=== PATIENT | male | born 1935 | race Caucasian/White ===

== ENCOUNTER 2018-10-02 09:59 | Inpatient (IN) ==
[2018-10-02 10:32] LABS: BASO# 0.06 X1000 (0.0-0.2); BASO% 0.8 % (0.0-0.8); EOS# 0.22 X1000 (0.0-0.7); EOS% 3.1 % (0.0-10.0); HEMATOCRIT 48.4 % (42.0-52.0); HEMOGLOBIN 16.4 g/dL (14.0-18.0); IMM GRAN# 0.03 X1000 (0.0-0.04); IMM GRAN% 0.4 % (0.0-0.5); LYMPH# 1.36 X1000 (1.2-3.4); LYMPH% 18.9 % (20.5-51.1); MCH 29.6 PG (27-31); MCHC 33.9 g/dL (33-37); MCV 87.4 FL (81-99); MONO# 0.57 X1000 (0.11-0.59); MONO% 7.9 % (1.7-9.3); MPV 10.9 FL (7.4-10.4); NEUT# 4.97 X1000 (1.4-6.5); NEUT% 68.9 % (42.2-75.2); PLT 195 X1000 (130-400); RBC 5.54 XMIL (4.7-6.1); RDW 13.7 % (11.5-14.5); WBC 7.21 X1000 (4.8-10.8)
--- NOTE | 2018-10-02 10:47 | Diag Imaging Result Doc PS360 ---
EXAM: CHEST-2 VIEWS 10/02/2018 HISTORY: cp TECHNIQUE: PA and lateral chest COMMENT: There is cardiomegaly. There are sternotomy wires. The lungs appear to be clear and unchanged since 01/30/2017. IMPRESSION: Stable chest. Electronically signed by Surinder Anton 10/02/2018 10:45 AM
[2018-10-02 11:02] LABS: CK PROFILE 49 U/L (24-204); LIPASE 20 U/L (13-60)
[2018-10-02] MEDS ORDERED: NITROGLYCERIN TOP ONE (11:20)
[2018-10-02 11:35] LABS: ALB/GLOB RATIO 1.8; ALBUMIN 4.4 g/dL (3.5-5.0); CALCIUM 9.6 mg/dL (8.8-10.2); CREATININE 1.6 mg/dL (0.7-1.2); POTASSIUM 4.8 mmol/L (3.5-5.1); TOTAL BILIRUBIN 1.95 mg/dL (0.20-1.00); TOTAL PROTEIN 6.8 g/dL (6.3-8.3)
--- NOTE | 2018-10-02 11:52 | EKG Report ---
Test Performed on : 10/02/2018 10:03:42 AM Test Reason : ED. No order in [place] Blood Pressure : / mmHG Vent. Rate : 077 BPM Atrial Rate : 077 BPM P-R Int : 220 ms QRS Dur : 158 ms QT Int : 438 ms P-R-T Axes : 073 -60 019 degrees QTc Int : 495 ms Sinus rhythm. with 1st degree AV block. with premature atrial complexes. with aberrant conduction. Right bundle branch block Left anterior fascicular block Bifascicular block Moderate voltage criteria for LVH, may be normal variant Abnormal ECG No previous ECGs available Unconfirmed Result
[2018-10-02] MEDS ORDERED: MORPHINE IV ONE (11:58)
[2018-10-02] MEDS ORDERED: NITROGLYCERIN SL PRN (14:06)
[2018-10-02] MEDS ORDERED: TYLENOL PO PRN (14:06)
[2018-10-02] MEDS ORDERED: ZOFRAN IV PRN (14:06)
[2018-10-02] MEDS ORDERED: LOVENOX SUBQ ONE (16:51)
--- NOTE | 2018-10-02 17:55 | CARDIOLOGY CONSULTATION ---
DATE: 10/02/2018 CHIEF COMPLAINT ON PRESENTATION: Chest pain. HISTORY OF PRESENT ILLNESS: Ms. Cooper is an 83-year-old white male with a history of coronary disease, aortic stenosis status post TAVR in 2016 who presented with complaints of chest pain that were pressure in nature and occurred this morning while he was hooking up his trailer to his truck. It lasted for several minutes, eventually resolved, no nausea or vomiting. No diaphoresis. He reports compliance with his medications. He sees Dr. Cabrera in [place] for Cardiology and last saw him less than 2 months ago. He has had no recent cardiac testing that he is aware of. PAST MEDICAL HISTORY: Significant for: 1. Coronary disease with coronary bypass grafting. This was done in 2009. This was a redo procedure. His last heart catheterization was performed in 2015 in [place]. This showed a severe lesion in the proximal LAD. REECE to the LAD was patent. The distal segment had severe diffuse disease. The diagonal branch is large and has mild diffuse disease. Circumflex is large nondominant 30% to 40% percent proximal stenosis. Right coronary is occluded. Vein graft to the OM2 was widely patent. REECE to the LAD is widely patent. 2. History of aortic stenosis status post TAVR in 2016. He originally had an aortic balloon valvuloplasty in preparation for colonic surgery. Subsequently 6 weeks later in 2016, he had a TAVR. 3. Colon cancer status post resection in 2016. 4. Hypertension. 5. Hyperlipidemia. 6. Chronic kidney disease. 7. Ischemic cardiomyopathy. The last evaluation of his ejection fraction that we have on record is from a nuclear scan in 2016 demonstrating an ejection fraction of 24%. On that study, he had a large size severe intensity, mostly fixed defect in the inferior wall suggestive of scar. In addition, he had a dilated left ventricle. SOCIAL HISTORY: He is . His is present with him today. He does not smoke. FAMILY HISTORY: Significant for hypertension. REVIEW OF SYSTEMS: A 10-system review of systems is negative except for those things mentioned in HPI. PHYSICAL EXAMINATION: Vital Signs: He is afebrile. His heart rate is 54. His blood pressure is 151/74. On presentation was 187/108. General: No acute distress. HEENT: Oropharynx is moist. Poor dentition. Eye examination is pink conjunctivae. White sclerae. Neck Examination: Shows no obvious thyromegaly or thyroid tenderness. Cardiovascular: He sounds to be in a regular rate and rhythm. I do not hear any obvious murmurs. He has no S3. He has no lower extremity edema. Chest Examination: Clear bilaterally. He has no increased work of breathing. Abdomen: Soft, nontender, nondistended. He has no obvious organomegaly. Skin: Warm and dry throughout without any rashes. Neurological: He is moving all extremities well. No lateralizing deficits. PERTINENT DATA: His EKG reviewed by me shows sinus mechanism. He has a right bundle branch block. PVC is identified. His lab data demonstrates a white count of 7.2, his hematocrit is 48, his platelet count is 195,000, his sodium is 143, potassium is 4.8, BUN 19, creatinine is 1.6. This gives him a GFR of 42. His liver enzymes are unremarkable. His troponin is negative initially. ASSESSMENT: Mr. Cooper is an 83-year-old male with a history of coronary disease, previous myocardial infarction and coronary bypass grafting and previous transcatheter aortic valve replacement. He presents with chest pain. PLAN: We will continue to trend his cardiac enzymes. We will review his echocardiogram. We will trend his blood pressures overnight, and when able, we will titrate medications. He currently is on aspirin therapy. I will give him a one time dose of Lovenox. cc: Nadeem Olivas MD
[2018-10-02 18:51] LABS: CK-MB 176.3 ng/mL (0.0-5.0)
--- NOTE | 2018-10-02 20:39 | ECHO REPORT ---
ORDER DATE: 10/02/2018 INTERPRETING PHYSICIAN: Singh Magallanes MD. REQUESTING PROVIDER: ARVIND Méndez, Hospitalist. INDICATIONS: Congestive heart failure, coronary artery disease. M-MODE MEASUREMENTS: Left ventricle end diastole: 5.9 cm. Left ventricle end systole: 4.7 cm. Posterior wall: 1.1 cm. Interventricular septum: 1.2 cm. Left atrium: 5.1 cm. Aortic diameter: not measurable here. The study was difficult. Optison was added to maximize visualization of the endocardium. SUMMARY OF 2-DIMENSIONAL IMAGIN. The left ventricular chamber is dilated. Otherwise the ventricular function appears to be significantly impaired. Estimated ejection fraction is about 35%. I believe there is significant impairment of the inferoposterior wall. 2. The mitral valve shows moderate degree of regurgitation. 3. Pulse wave Doppler of mitral inflow shows mild reversal of the E/A ratio at 0.7. 4. The tissue Doppler of septal and lateral mitral annulus is 5.5 cm. 5. There is impaired left ventricular relaxation. 6. The tricuspid valve shows mild regurgitation. 7. Pulmonary pressure estimated at 47 mmHg. The pulmonary valve is unremarkable. 8. Aortic valve shows sclerosis of the cusps without aortic stenosis. 9. The left atrium is mild to moderately enlarged. 10.There is no pericardial effusion, mass or thrombus. In summary, this patient has: 1. Enlargement of left ventricle with moderately impaired systolic function with ejection fraction of 30-35% with wall motion abnormality involving mostly the inferolateral wall. 2. The mitral annulus shows calcification with mild to moderate regurgitation. 3. There is impaired left ventricular relaxation. 4. Pulmonary pressure is estimated at 47 mmHg. Clinical correlation is recommended. cc: Singh Magallanes MD
--- NOTE | 2018-10-02 23:02 | HISTORY AND PHYSICAL ---
PRIMARY CARE PROVIDER: Jose Manuel Fernandez N[employer] LEADER: Dr. Cabrera at [facility]. CHIEF COMPLAINT: Chest pain. HISTORY OF PRESENT ILLNESS: Mr. Cooper is an 83-year-old male who carries a past medical history of coronary artery disease status post CABG x2, TAVR procedure, congestive heart failure, hypertension, chronic kidney disease, and gout, who reported to the ED after he started having chest pain this a.m. He described it as achy and tight as well as aching in his back underneath his right shoulder blade. The chest pain went from the right side across to the left side of his chest. He had some associated shortness of breath and dizziness as well as weakness. 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 That is when it began. He went ahead and went to an acre lot, did about 3 circles of mowing and had to stop secondary to the pain. It was relieved with morphine and nitroglycerin. He now just has soreness in his chest and back area. Initial workup in the ED showed a negative troponin, stable chronic kidney disease, chronically elevated T bilirubin. EKG showed sinus rhythm with a first-degree AV block with PACs at 77 beats per minute. He will be admitted to the hospital. We will continue to trend his cardiac enzymes as well as check an echocardiogram and consult Cardiology. PAST MEDICAL HISTORY: 1. Coronary artery disease. 2. Congestive heart failure. 3. Hypertension. 4. Chronic kidney disease. 5. Gout. 6. Aortic valve stenosis. PAST SURGICAL HISTORY: 1. CABG x2 in [address] Jeremi Brito. He has also had 10 heart stents. 2. TAVR with an aortic valve replacement. Patient was on Coumadin. He is now on Plavix secondary to severe nosebleeds. 3. Knee replacement and hip replacement. FAMILY HISTORY: Reviewed and noncontributory. SOCIAL HISTORY: He lives with his . No alcohol, tobacco, or illicit drug use. ALLERGIES: To statin. HOME MEDICATIONS: Have not been verified. REVIEW OF SYSTEMS: Twelve-point review of systems completely negative except for those mentioned in HPI. VITAL SIGNS: Temperature is 97.9 degrees, heart rate 54, respirations 18, blood pressure 151/74. O2 is 98% on room air. PHYSICAL EXAMINATION: VITAL SIGNS: Temperature is 97.9 degrees, heart rate 54, respirations 18, blood pressure 151/74, O2 is 98% on room air. GENERAL: Mr. Coopre is a pleasant 83-year-old male who is lying on the stretcher in no acute distress. HEENT: Atraumatic, normocephalic. PERRL. NECK: Supple. Trachea midline. CARDIOVASCULAR: S1-S2 appreciated. Did not appreciate any home mechanical valve sounds or murmurs. No JVD. The patient does have 3+ pitting edema in the bilateral lower extremities. GASTROINTESTINAL: Soft, nontender, nondistended. Positive bowel sounds 4 quadrants. EXTREMITIES: No signs of clubbing or cyanosis. NEUROLOGIC: No focal deficits noted. LABORATORY DATA: White count 7, hemoglobin and hematocrit 16 and 48, platelet count is 195,000. Sodium 143, potassium 4.8, BUN 19, creatinine 1.6, blood glucose is 164, T bilirubin was 1.95. Troponin was less than 0.010. DIAGNOSTIC DATA: Chest x-ray is stable. EKG showed sinus rhythm with first- degree AV block with PACs and left anterior fascicular block. ASSESSMENT AND PLAN: 1. 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 His chest pain is now subsided; however, it was subsided after he was given morphine and nitroglycerin; however, now, all that is left is soreness. There is no achy or tight feeling. We will continue to trend his cardiac enzymes for 2 more sets, check an echocardiogram, consult with Cardiology given his history. Continue to monitor him on telemetry and provide him with p.r.n. nitroglycerin and will continue any home medications once they have been verified. 2. Congestive heart failure. 3. Hypertension. 4. Chronic kidney disease. Patient appears to be at his baseline. 5. Bilateral lower extremity edema. This has been chronic and ongoing for several years. 6. Further recommendations to follow physician evaluation, laboratory and diagnostic data. Dictated by ARVIND Rea for Grady Rivera MD cc: MD Jose Manuel Thomas MD Agree with the above. the following is my own face to face assessment. patient with chest pain. history only moderate suspicious but extensive cardiac history with CAD, severe aortic stenosis s/p TAVR, and chronic systolic CHF, last EF in our system 25% but patient believes his EF improved significantly after TAVR and with medical therapy. heart RRR on exam. no murmurs that I can auscultate. MTDD
[2018-10-02 23:30] LABS: CK INDEX 12.2 (0.0-2.5); CK-MB 197.3 ng/mL (0.0-5.0)
[2018-10-03 05:34] LABS: BASO# 0.03 X1000 (0.0-0.2); BASO% 0.4 % (0.0-0.8); EOS# 0.24 X1000 (0.0-0.7); EOS% 3.2 % (0.0-10.0); HEMATOCRIT 43.1 % (42.0-52.0); HEMOGLOBIN 14.6 g/dL (14.0-18.0); IMM GRAN# 0.04 X1000 (0.0-0.04); IMM GRAN% 0.5 % (0.0-0.5); LYMPH# 1.35 X1000 (1.2-3.4); LYMPH% 18.2 % (20.5-51.1); MCHC 33.9 g/dL (33-37); MCV 88.7 FL (81-99); MONO# 0.71 X1000 (0.11-0.59); MONO% 9.6 % (1.7-9.3); MPV 11.1 FL (7.4-10.4); NEUT# 5.06 X1000 (1.4-6.5); NEUT% 68.1 % (42.2-75.2); PLT 147 X1000 (130-400); RBC 4.86 XMIL (4.7-6.1); RDW 13.6 % (11.5-14.5); WBC 7.43 X1000 (4.8-10.8)
[2018-10-03 06:13] LABS: AGAP 10; ALB/GLOB RATIO 1.4; ALBUMIN 3.4 g/dL (3.5-5.0); ALKALINE PHOSPHATASE 60 U/L (32-122); BUN 18 mg/dL (8-22); CALCIUM 8.7 mg/dL (8.8-10.2); CHLORIDE 102 mmol/L (98-107); CHOLESTEROL 152 mg/dL (0-200); COSMO 279; CREATININE 1.3 mg/dL (0.7-1.2); ESTIMATED GFR 53; GLUCOSE 118 mg/dL (70-104); GOT 213 U/L (10-34); GPT 31 U/L (10-44); MAGNESIUM 1.8 mg/dL (1.5-2.7); SODIUM 138 mmol/L (136-145); TCO2 26 mmol/L (25-35); TOTAL BILIRUBIN 1.65 mg/dL (0.20-1.00); TOTAL PROTEIN 5.8 g/dL (6.3-8.3); TRIGLYCERIDES 162 mg/dL (39-160)
[2018-10-03 06:14] LABS: HDL 39 mg/dL (35-55); LDL 81 mg/dL; VLDL 32 mg/dL
[2018-10-03] MEDS: PRILOSEC PO SCH (06:57)
[2018-10-03] MEDS ORDERED: ASPIRIN PO SCH (09:00)
[2018-10-03] MEDS: PLAVIX PO SCH (09:54)
[2018-10-03] MEDS: LOVENOX SUBQ SCH (16:05)
--- NOTE | 2018-10-03 20:00 | PROGRESS NOTE ---
DATE: 10/03/2018 The patient with no further chest pain, but did have increasing troponin overnight. No other acute events overnight. No new complaints. REVIEW OF SYSTEMS: Twelve point review of systems negative except as per interval history. LABS: CBC unremarkable. Chemistry remarkable only for BUN 18, creatinine 1.3 glucose 118, total bilirubin 1.65, AST 213. First troponin negative. Repeat troponin 1.23, second repeat troponin 4.38. VITALS: T-max 98.9 degrees, pulse 66, respirations 18, blood pressure 117/62, O2 saturation 99% on room air. PHYSICAL EXAMINATION: General: No acute distress. Vitals: As above. HEENT: Normocephalic, atraumatic. Moist mucous membranes. No cervical adenopathy. Cardiovascular: Regular rate and rhythm. No murmurs noted. Pulmonary: Clear to auscultation bilaterally. No wheezing, rales, or rhonchi noted. Abdomen: Soft, nontender, nondistended. Bowel sounds positive. Extremities: Peripheral pulses intact. No clubbing or cyanosis. Stable 2 to 3+ edema bilaterally. Neurologic: Cranial nerves grossly intact. No focal deficits identified. Psychiatric: Normal mood and affect. Awake, alert, oriented x3. Skin: No new rashes or lesions identified. ASSESSMENT AND PLAN: 1. NSTEMI. The patient presenting with chest pain. Initial troponin was negative but subsequent troponins have trended up to 1.23 and then to 4.38. Further repeat pending. Cardiology has been made aware and further recommendations are pending. Continue aspirin, Plavix, and beta monika. 2. Likely acute kidney injury. Patient admitted with creatinine 1.6. Improved today to 1.3. Could be lab variation, but suspect improving acute kidney injury. 3. Coronary artery disease. Treatment as above. 4. Hypertension. Good control, currently on home Coreg and nitroglycerin. Holding home Lasix and lisinopril given elevated creatinine. 5. Hyperlipidemia. Continue Zetia on discharge. 6. Benign prostatic hypertrophy. We will restart patient's home Flomax. 7. Chronic systolic congestive heart failure. The patient with previous EF as low as 25, but he reports he believes this improved after repair of his aortic valve. Repeat echo pending to assess. 8. History of severe aortic stenosis status post TAVR repair. 9. Elevated bilirubin of uncertain significance but trending down. No abdominal pain or other intra-abdominal pathology. Monitor for now. MTDD
[2018-10-03] MEDS: COREG PO SCH (20:58)
--- NOTE | 2018-10-03 20:59 | EKG Report ---
Test Performed on : 10/03/2018 06:11:33 AM Test Reason : cp fu Blood Pressure : / mmHG Vent. Rate : 053 BPM Atrial Rate : 053 BPM P-R Int : 272 ms QRS Dur : 164 ms QT Int : 540 ms P-R-T Axes : 045 -56 217 degrees QTc Int : 506 ms Sinus bradycardia. with 1st degree AV block. with occasional premature ventricular complexes. Right bundle branch block Left anterior fascicular block Bifascicular block Minimal voltage criteria for LVH, may be normal variant T wave abnormality, consider lateral ischemia Nonspecific T wave abnormality inferior leads Abnormal ECG When compared with ECG of 02-OCT-2018 10:03, (Unconfirmed) premature ventricular complexes. are now present aberrant conduction. is no longer present Nonspecific T wave abnormality, worse in Inferior leads T wave inversion now evident in Lateral leads Confirmed by Cameron Hebert MD ([id number]) on 10/06/2018 9:07:47 PM
--- NOTE | 2018-10-03 22:31 | CARDIOLOGY PROGRESS NOTE ---
DATE: 10/03/2018 SUBJECTIVE: He has had no episodes of chest pain overnight. OBJECTIVE: The patient is afebrile. His heart rate is 66, blood pressure 117/62. Generally he is in no acute distress. Cardiovascular: He sounds to be in a regular rate and rhythm. He has no obvious murmurs. He has no S3. He has no lower extremity edema. Chest exam is clear bilaterally. No increased work of breathing. Abdomen is soft, nontender. LABORATORY DATA: White count 7.4, hematocrit 43, platelet count 147,000. His sodium is 138, potassium 4, BUN 18, creatinine 1.3. His troponin has trended from less than 0.010 up to a peak of 4.38. His LDL was 81. ASSESSMENT: Mr. Cooper is an 83-year-old gentleman who presents with chest discomfort concerning for angina. He has ruled in for a [id number] myocardial infarction. PLAN: We will proceed with transfer over to [facility] for heart catheterization and possible PCI. The patient has been placed on Lovenox at a 1 mg/kg b.i.d. dosing. Presently he is on Plavix, aspirin and p.r.n. nitroglycerin. He appears to have been on a 12.5 mg Coreg dose at home. His blood pressures seem to be on the low side here. We will try to reinitiate with a 3.125 mg b.i.d. dose. We will discuss the case with [facility] today to attempt transfer over in the near future. cc: Nadeem Olivas MD
[2018-10-04 05:40] LABS: BASO# 0.03 X1000 (0.0-0.2); BASO% 0.4 % (0.0-0.8); EOS% 4.4 % (0.0-10.0); HEMATOCRIT 43.5 % (42.0-52.0); HEMOGLOBIN 14.7 g/dL (14.0-18.0); IMM GRAN# 0.04 X1000 (0.0-0.04); IMM GRAN% 0.6 % (0.0-0.5); LYMPH# 1.51 X1000 (1.2-3.4); LYMPH% 22.2 % (20.5-51.1); MCH 29.9 PG (27-31); MCHC 33.8 g/dL (33-37); MCV 88.4 FL (81-99); MONO# 0.66 X1000 (0.11-0.59); MONO% 9.7 % (1.7-9.3); MPV 11.1 FL (7.4-10.4); NEUT# 4.26 X1000 (1.4-6.5); NEUT% 62.7 % (42.2-75.2); PLT 167 X1000 (130-400); RBC 4.92 XMIL (4.7-6.1); RDW 13.6 % (11.5-14.5)
[2018-10-04 05:52] LABS: CALCIUM 8.7 mg/dL (8.8-10.2); CREATININE 1.2 mg/dL (0.7-1.2); POTASSIUM 4.1 mmol/L (3.5-5.1)
[2018-10-04] MEDS: PRILOSEC PO SCH (06:16)
[2018-10-04] MEDS: LOVENOX SUBQ SCH (06:16)
[2018-10-04] MEDS ORDERED: ASPIRIN EC PO SCH (09:00)
[2018-10-04] MEDS: COREG PO SCH (09:40)
[2018-10-04] MEDS: PLAVIX PO SCH (09:40)
[2018-10-04] MEDS ORDERED: PRINIVIL PO SCH (10:15)
--- NOTE | 2018-10-04 10:55 | CARDIOLOGY PROGRESS NOTE ---
DATE: 10/04/2018 SUBJECTIVE: Mr. Cooper has not had any pain complaints since presentation to the hospital. PHYSICAL EXAMINATION: He is afebrile, his heart rate is 54, his blood pressure is 149/60. General: He is in no acute distress. Cardiovascular: He sounds to be in a regular rate and rhythm. He does not have any obvious murmurs. He has no S3. He has no lower extremity edema. Chest: Examination sounds clear bilaterally. He has no increased work of breathing. His abdomen is soft, nontender. PERTINENT DATA: His echocardiogram yesterday demonstrated an EF of 30 to 35% with wall motion abnormality involving the inferolateral wall. His laboratory data in the interim demonstrates a sodium of 140, potassium is 4.1, BUN 18, creatinine is 1.2. His troponin peaked at 4.38. His LDL was 81. He has an intolerance to statins. His white count is 6.8, hematocrit is 43, his platelet count is 167,000. ASSESSMENT: Mr. Cooper is an 83-year-old gentleman who presented with a non-ST elevation myocardial infarction. PLAN: We have discussed the case with the cardiology service at [place]. They have agreed to accept him over for cardiac catheterization. His previous catheterization in 2009 demonstrated an occluded right coronary. Circumflex was large and nondominant with 30-40% diffuse stenosis. The LAD had a high-grade lesion in the proximal LAD with a patent REECE to the LAD, with distal severe diffuse disease in the distal LAD. There was a diagonal branch with large and mild diffuse disease. His blood pressure has been somewhat elevated recently. I have added in some RUFINA inhibitor considering his recent non ST-elevation CO and reduced ejection fraction. He is on a beta-monika, aspirin, Plavix, and treatment dose Lovenox. cc: Nadeem Olivas MD
[2018-10-04 11:56] VITALS: BP 146/53
--- NOTE | 2018-10-06 09:27 | PROVIDER DOCUMENTATION ---
This chart was entered by Liz Kuhn Scribe, acting as scribe for Gordon Norris MD. HPI-Chest Pain - General Chief Complaint: Chest Pain Stated Complaint: CHEST PAIN Time Seen by Provider: 10/02/18 10:05 Source: patient Allergies/Adverse Reactions: Patient Allergies Allergy/AdvReac Type Severity Reaction Status Date / Time Ncxrkpj-Tvd-Gcm Reductase Allergy Intermediate ITCHING Verified 06/10/17 12:55 Inhibitor Home Medications: Home Medication List Medication Instructions Recorded Confirmed Last Taken Type Allopurinol 100 mg PO BID 06/03/15 10/02/18 10/02/18 08:30 History Aspirin 81 mg PO DAILY 06/03/15 10/02/18 10/02/18 08:30 History Ezetimibe [Zetia] 10 mg PO DAILY 06/03/15 10/02/18 06/15/17 History Furosemide [Lasix] 20 mg PO DAILY 06/03/15 10/02/18 06/15/17 History Tamsulosin [Flomax] 0.4 mg PO DAILY 06/03/15 10/02/18 06/15/17 History Clopidogrel Bisulfate [Plavix] 75 mg PO DAILY 01/30/17 10/02/18 1 Week Ago History ~06/09/17 Lisinopril 5 mg PO BID 01/30/17 10/02/18 10/02/18 08:30 History Carvedilol [Coreg] 1 tab PO BID 06/10/17 10/02/18 10/02/18 08:30 History Ergocalciferol (Vitamin D2) 50,000 unit PO Q7D 06/10/17 10/02/18 06/10/17 History [Vitamin D] - History of Present Illness-CP Nature of Presenting Problem: 83yom presents to ED cc chest pain that is achy but doesn't radiate anywhere, for 1 hr. Pt reports he went out to mow grass on riding lawnmower and started having chest pain. Pt denies SOB. Pt is nontoxic in appearance and A&Ox3. Pt has hx of CO with 10 stents placed, aortic valve replacement, CAD, CHF, HTN and colon cancer. Location: reports: substernal Chest Pain Radiation: reports: no radiation Quality of Pain: reports: aching Severity in ED: mild Onset/Duration: 1-3 hours ago Timing: intermittent Context/Activities at Onset: reports: moderate activity (mowing grass on riding lawnmower) Modifying Factors: improves with: nothing Associated Symptoms: reports: denies symptoms Prior Chest Pain/Cardiac Workup: reports: heart attack Similar Symptoms Previously?: Yes Recently Seen Here or By Another Healthcare Provider: No Review of Systems - Adult - REVIEW OF SYSTEMS - ADULT Constitutional: reports: see HPI, fatique. denies: chills, fever Eyes: reports: no symptoms reported Ears, Nose, Mouth & Throat: reports: no symptoms reported Cardiovascular: reports: see HPI, chest pain. denies: irregular heart rate, palpitations, syncope Respiratory: reports: no symptoms reported Gastrointestinal: reports: no symptoms reported Genitourinary: reports: no symptoms reported Musculoskeletal: reports: no symptoms reported Integumentary: reports: no symptoms reported Neurological: reports: no symptoms reported Psychiatric: reports: no symptoms reported Endocrine: reports: no symptoms reported Hematologic/Lymphatic: reports: no symptoms reported Allergic/Immunologic: reports: no symptoms reported All Other Systems: Reviewed and Negative Past History - Adult - PAST MEDICAL HISTORY-ADULT Review of Records: reports: Nursing Assessment Review, Medications Reviewed, Social history reviewed & non-contributory. Major Childhood Illnesses: reports: denies history Cardiovascular: reports: CAD, CHF, HTN Respiratory: reports: denies history Gastrointestinal: reports: denies history Obstetrical/Gynecological: reports: denies history Genitourinary: reports: kidney disease Musculoskeletal: reports: arthritis (gout) Neurological: reports: denies history Endocrine/Immune: reports: denies history Other Conditions: reports: denies history - PRIOR SURGERIES/PROCEDURES Surgical/Procedure History: reports: CABG (last few yrs ago), cardiac stent (x10), joint replacement (knee, hip) - IMMUNIZATION STATUS Childhood Immunizations: See Nurse Assessment Flu Vaccine: See Nurse Assessment - FAMILY HISTORY Family History: reviewed, not pertinent Physical Exam-General - PHYSICAL EXAM-ADULT Initial Vital Signs Reviewed: Yes - CONSTITUTIONAL General Appearance: appears well, alert, mild distress, anxious. negative: combative - EYES Eyes: PERRL/EOMI, pink conjunctivae. negative: meningismus, pale conjunctivae, photophobia - HEAD, EARS, NOSE, MOUTH & THROAT HENMT: normocephalic/atraumatic, moist mucous membranes. negative: angioedema, hearing deficit - RESPIRATORY Respiratory: chest non-tender, lungs clear, normal breath sounds, no pleuratic chest pain, no respiratory distress, no accessory muscle use. negative: crackles, rales, rhonchi, stridor, wheezing - CARDIOVASCULAR Cardiovascular: normal peripheral pulses, regular rate, rhythm, no edema, no gallop, no JVD, no murmur. negative: bradycardia, tachycardia - SKIN Integumentary: normal color, normal turgor, warm/dry. negative: blanching, cyanosis, diaphoresis, jaundice - NEUROLOGIC Neurologic: artificial foliage arranger II-XII nml as tested, grossly normal, no motor/sensory deficits. negative: facial droop, focal weakness - PSYCHIATRIC Psych/Mental Status: normal mood/affect, normal thought content, normal thought process, oriented x 3, anxious. negative: disoriented x 3, disheveled, depressed affect Progress - PLAN OF CARE/RESULTS Result Diagrams: 10/04/18 04:41 10/04/18 04:41 - EKG 1 Time of EKG reading by physician:: 10:25 EKG Read and Signed by:: Gordon Norris EKG Interpretation (*Must complete 3 of following elements*): Abnormal (left anterior fascicular block bifascicular block) Rate: 77 Rhythm: sinus w/1st degree AV block QRS: RBB, LVH (moderate voltage criteria, may be normal variant), other (PAC with aberrant conduction) ST Wave: normal - XRAY 1 XRAY: Bilateral XRAY Study: Chest Impression: See EMR Report ( IMPRESSION: Stable chest. Electronically signed by Surinder Anton 10/02/2018 10:45 AM 10/02/18 1045 Interpreting Physician: Surinder Anton MD Dictated Date/Time: 10/02/18 1044 cc: Gordon Norris MD; Jose Manuel Fernandez) - CONSULTS/PCP/HOSPITALIST Notification #1 *Consult/PCP/Hospitalist*: Zo Time Discussed: 11:58 Consult Disposition: Will see in ED Departure - Departure Date of Disposition Decision: 10/02/18 Time of Disposition Decision: 14:00 DIAGNOSIS: Chest pain Qualifiers: Chest pain type: unspecified Qualified Code(s): R07.9 - Chest pain, unspecified Disposition: ADMITTED INPATIENT 09 Certified Medical Emergency: Emergent Condition: Stable - Critical Care Note This patient required my direct & personal management of CC.: No Attestation - Physician/ ANNETTA Attestation Patient care was provided by Advanced Practice Provider:: No The physician spent face to face time with patient:: Yes Advanced Practice Provider documentation review:: Supervising physician onsite and consulted in the evaluation and care of this patient. The physician did have a face to face encounter with the patient. This chart was documented by the indicated scribe, (Liz Kuhn, Mita) and accurately reflects the services I performed and decisions made by me, Gordon Norris MD, as attested by the provider's signature.
--- NOTE | 2018-10-06 11:00 | DISCHARGE SUMMARY ---
ADMISSION DATE: 10/02/2018 DISCHARGE DATE: 10/04/2018 ADDENDUM TO DISCHARGE SUMMARY: PROCEDURES AND FINDINGS: Chest x-ray done on 10/02/2018 shows a stable chest. No cardiomegaly. Echocardiogram done on 10/02/2018 shows enlargement of the left ventricle with moderately impaired systolic function with ejection fraction of 30 to 35 percent with wall motion abnormality involving mostly the inferior lateral wall. The mitral annulus shows calcification with mild-to- moderate regurgitation. There is a impaired left ventricular relaxation. Pulmonary pressure is estimated at 47 mmHg. EKG on 10/03/2018 shows sinus bradycardia with first-degree AV block with occasional premature ventricular complexes. 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 Atrial rate is 53 beats per minute. Laboratory finding showed an initial prior troponin of 0.01, then increasing to 1.230, then 4.380 and then 3.2060. Initial creatinine is 1.6. Upon discharge creatinine is 1.2. Creatine kinase initially was 49 going to 1354 and then 1621 with a creatine kinase index of 13, and then this subsequently 12.2. CONSULTATION: Brendon Saenz. HOSPITAL COURSE: Mr. Cooper is an 83-year-old male who presented to the ER with chest pain. Patient has a past medical history of coronary artery disease status post CABG x2, a TAVR procedure, congestive heart failure, hypertension, chronic kidney disease, and gout. The patient stated he had been having aching and tightness along the chest wall in his back and his right shoulder blade. The chest pain went from the right side across to the left side of his chest. He has had some associated shortness of breath and dizziness as well as weakness. Initially started having this pain while he was loading a lawnmower into the back of his truck. He stated that the chest pain was a soreness is to his chest at the present time in the emergency room. The patient was admitted to the CIC unit. Serial CK and troponin's were followed up. Echocardiogram was performed and cardiology was consulted. Patient started having chest pain overnight on 10/03/2018. Troponins became elevated. The patient is being transferred to [facility] for heart catheterization and possible PCI. The patient was started on Lovenox 1 mg/kg b.i.d. He was also started on Plavix and aspirin, and nitroglycerin p.r.n. for pain. The patient had a heart catheterization in 2009 that demonstrated occluded right coronary, the circumflex was large and nondominant with 30% diffuse stenosis. The LAD had a high-grade lesion in the proximal LAD with a patent REECE to the LAD with distal severe diffuse disease in the distal LAD. The patient was started on an RUFINA inhibitor. He is on beta monika, aspirin and Plavix. DISCHARGE LAB DATA: White blood cell count 6.80, hemoglobin 14.7, hematocrit 43.5, platelet counts 167,000. Chemistry, sodium 140, potassium 4.1, BUN is 18, creatinine is 1.2, glucose is 114, calcium is 8.7, total bilirubin is 1.65, AST is 213, ALT is 31, creatine kinase 1621, creatine kinase index 12.2, CK-MB 197.30, troponin 3.260. DISCHARGE MEDICATIONS: Allopurinol 100 mg p.o. b.i.d., aspirin 81 mg p.o. daily, nitroglycerin 0.4 mg sublingual q.5 minutes p.r.n. pain, Prilosec 20 mg p.o. daily, Plavix 75 mg p.o. daily. Lovenox 100 mg subcutaneous q.12 hours, Coreg 3.125 mg p.o. b.i.d., lisinopril 10 mg p.o. daily. DISCHARGE DIET: Per [facility]. DISCHARGE ACTIVITY: Patient is being discharged to a [facility]. Resume activity per [facility]. DISPOSITION: Patient is discharged to [facility] PCI. Primary care providers Dr. Grady Fernandez. Dictated by ARVIND Robledo for Grady Rivera MD
== END 2018-10-04 13:45 | disposition short-term general hospital (02) | DRG 281 ==
LOC: ED 09:59 → 4N 10:00 → 3S 10-03 16:18
PROVIDERS: ATTEND Internal Medicine
CPT/HCPCS: 71020; 71046; 80048; 80053; 80061; 82550; 82553; 83690; 83735; 84484; 85025; 93005; 93010; 93306; 94761; A9270; C8929; J1650; J2270; Q9957

== ENCOUNTER 2019-06-26 13:00 | Inpatient (IN) ==
[2019-06-26] MEDS ORDERED: ASPIRIN PO ONE ×2 (13:58→15:39)
--- NOTE | 2019-06-26 14:06 | PROVIDER DOCUMENTATION ---
HPI-General Adult - General Chief Complaint: Dizziness Stated Complaint: WEAKNESS/DIZZY Time Seen by Provider: 06/26/19 13:51 Source: patient, EMS Allergies/Adverse Reactions: Patient Allergies Allergy/AdvReac Type Severity Reaction Status Date / Time Kikcglt-Ptt-Mbs Reductase Allergy Intermediate ITCHING Verified 06/10/17 12:55 Inhibitor Home Medications: Home Medication List Medication Instructions Recorded Confirmed Last Taken Type Allopurinol 100 mg PO BID 06/03/15 02/17/19 10/02/18 08:30 History Aspirin 81 mg PO DAILY 06/03/15 02/17/19 10/02/18 08:30 History Ezetimibe [Zetia] 10 mg PO DAILY 06/03/15 02/17/19 06/15/17 History Furosemide [Lasix] 20 mg PO DAILY 06/03/15 02/17/19 06/15/17 History Tamsulosin [Flomax] 0.4 mg PO DAILY 06/03/15 02/17/19 06/15/17 History Clopidogrel Bisulfate [Plavix] 75 mg PO DAILY 01/30/17 02/17/19 1 Week Ago History ~06/09/17 Lisinopril 10 mg PO BID 01/30/17 02/17/19 10/02/18 08:30 History Carvedilol [Coreg] 25 tab PO BID 06/10/17 02/17/19 10/02/18 08:30 History Cholecalciferol (Vitamin D3) 5,000 unit PO DAILY 02/17/19 02/17/19 Unknown History [Vitamin D3] Diphenoxylate/Atropine [Lomotil] 2.5 mg PO Q4H PRN 02/17/19 02/17/19 Unknown History Hydrocodone/Acetaminophen 1 ea PO Q6H PRN PRN #20 tab 02/17/19 Unknown Rx [Hydrocodone-Acetamin 5-325 mg] - History of Present Illness -Gen Adult Nature of Presenting Problems: 84 YOM with extensive cardiac hx presents with c/o dizziness, generalized weakness, multiple falls recently most recent being this AM. He reports no Hx of a-fib however on EMS monitor he is showing a rate controlled afib at 54. He denies CP, SOB, Fever, cough. He has swelling to BLE worse on the R than L, pt reports this is chronic. Location of Pain/Injury: reports: none Quality of Pain: reports: none Severity: reports: moderate Onset/Duration: reports: 6 days ago (intermittent) Timing: reports: gone now, intermittent Context/Activities at Onset: reports: eating Modifying Factors: improves with: movement Associated Symptoms: reports: dizziness, weakness. denies: chest pain, cough, diaphoresis, fever/chills, headaches, loss of appetite, sinus congestion/drainage, nausea Similar Symptoms Previously?: Yes Recently seen or treated by another doctor?: No Review of Systems - Adult - REVIEW OF SYSTEMS - ADULT Constitutional: reports: no symptoms reported. denies: chills, fever Eyes: reports: no symptoms reported. denies: decreased vision, blurred vision, double vision, eye pain Ears, Nose, Mouth & Throat: reports: no symptoms reported. denies: tinnitus, mouth/dental pain Cardiovascular: reports: no symptoms reported. denies: chest pain, palpitations Respiratory: reports: no symptoms reported. denies: cough, shortness of breath, wheezing Gastrointestinal: reports: no symptoms reported. denies: abdominal pain, diarrhea, nausea, poor appetite, vomiting Genitourinary: reports: no symptoms reported. denies: dysuria, flank pain, frequent UTI's, hematuria Musculoskeletal: reports: see HPI, muscle weakness (generalized) Integumentary: reports: no symptoms reported. denies: itching, rash, skin sores/ulcer Neurological: reports: dizziness/vertigo, loss of balance. denies: headache/migraines, numbness, paresthesia, seizure, slurred speech, syncope Psychiatric: reports: no symptoms reported. denies: anxiety, depression, panic attacks, suicidal thoughts Endocrine: reports: no symptoms reported. denies: see HPI, change in skin pigment, excessive sweating, goiter, cold intolerance, heat intolerance, increased hunger, increased thirst, polyuria, other Hematologic/Lymphatic: reports: no symptoms reported. denies: see HPI, blood clots, easy bruising, low blood count, lymphedema, prolonged bleeding, swollen lymph nodes, transfusions, other Allergic/Immunologic: reports: no symptoms reported. denies: see HPI, allergic reactions, allergic rhinitis, asthma, eczema, food allergy, frequent infections, hay fever, hives, positive PPD, urticaria, other Past History - Adult - PAST MEDICAL HISTORY-ADULT Review of Records: reports: Nursing Assessment Review, Medications Reviewed, Social history reviewed & non-contributory. Major Childhood Illnesses: reports: denies history Cardiovascular: reports: CAD, CHF, HTN Respiratory: reports: denies history Gastrointestinal: reports: denies history Obstetrical/Gynecological: reports: denies history Genitourinary: reports: kidney disease Musculoskeletal: reports: arthritis (gout) Neurological: reports: denies history Endocrine/Immune: reports: denies history Other Conditions: reports: denies history - PRIOR SURGERIES/PROCEDURES Surgical/Procedure History: reports: CABG, cardiac stent, joint replacement - IMMUNIZATION STATUS Childhood Immunizations: See Nurse Assessment Flu Vaccine: See Nurse Assessment - FAMILY HISTORY Family History: reviewed, not pertinent Physical Exam-General - PHYSICAL EXAM-ADULT Initial Vital Signs Reviewed: Yes - CONSTITUTIONAL General Appearance: alert, no apparent distress - EYES Eyes: PERRL/EOMI, pink conjunctivae - HEAD, EARS, NOSE, MOUTH & THROAT HENMT: normocephalic/atraumatic, moist mucous membranes, normal ENT inspection - NECK Neck: non-tender, full range of motion, supple - RESPIRATORY Respiratory: chest non-tender, lungs clear, normal breath sounds, no pleuratic chest pain, no respiratory distress, no accessory muscle use - CARDIOVASCULAR Cardiovascular: normal peripheral pulses, irregularly irregular - GASTROINTESTINAL (ABDOMEN) Abdominal Exam: normal bowel sounds, non tender, soft - LYMPHATIC Lymphatic: no adenopathy - MUSCULOSKELETAL Back Exam: normal inspection, no CVA tenderness, no vertebral tenderness Extremity: pedal edema (BLE, R> L), swelling (BLE, R > L). negative: normal gait (on EMS stretcher at time of exam), tenderness Peripheral Pulses: radial (R): 2+, radial (L): 2+ - SKIN Integumentary: normal color, normal turgor, warm/dry - NEUROLOGIC Neurologic: grossly normal. negative: aphasia, facial droop, focal weakness - PSYCHIATRIC Psych/Mental Status: normal mood/affect, oriented x 3 Progress - PLAN OF CARE/RESULTS Progress/Plan/Lab Results: Vital Signs - 8 hr 06/26/19 13:12 Temperature 98.3 F Pulse Rate 61 Respiratory Rate 16 Blood Pressure 137/69 O2 Sat by Pulse Oximetry 97 Laboratory Results - last 24 hr 06/26/19 13:19 POC Glucose 140 H Orders Category Date Time Status Fingerstick Blood Sugar [FSBS/Accucheck Result] NOW Care 06/26/19 13:20 Active Nursing- Obtain EKG ONCE Care 06/26/19 13:20 Active Saline Loc NOW Care 06/26/19 13:[address] HEAD W/O CONTRAST [CT] Stat Exams 06/26/19 13:59 Ordered CBC WITH ELECTRONIC DIFF [HEME] Stat Lab 06/26/19 13:58 Uncollected CK PROFILE [SP CHEM] Stat Lab 06/26/19 13:58 Uncollected COMPREHENSIVE METABOLIC PANEL [CHEM] Stat Lab 06/26/19 13:58 Uncollected TROPONIN T HIGH SENSITIVITY Stat Lab 06/26/19 13:58 Uncollected UA NIMS W/REFLEX CULT [URINALYSIS] Stat Lab 06/26/19 13:58 Uncollected Aspirin Med 06/26/19 13:58 Discontinued 325 mg PO NOW ONE EKG [EKG] Stat Ther 06/26/19 13:20 Ordered 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 Moderate voltage for LVH) AR Interval: normal ST Wave: non-specific ST changes Prior EKG Comparison: changes noted (A-fib is of new onset) - XRAY 1 XRAY Study: Chest Impression: See EMR Report (CHEST-2 VIEWS - 06/26/2019 INDICATION: a-fib COMPARISON: 10/02/2018 FINDINGS: Stable surgical changes to the heart with aortic valve replacement. Stable moderate cardiomegaly. Pulmonary vascularity is grossly normal. No infiltrates or edema. No pneumothorax or pleural effusion. IMPRESSION: Cardiomegaly. Electronically signed by Jonathan Stephenson 06/26/2019 3:56 PM 06/26/19 1556 Interpreting Physician: Jonathan Stephenson MD Dictated Date/Time: 06/26/19 1551 cc: Ellie Fernandez; Jose Manuel Fernandez) - CT/MRI 1 CT Study: Head Impression: See EMR Report (CT HEAD W/O CONTRAST - 06/26/2019 INDICATION: dizziness, falls COMPARISON: 01/30/2017 FINDINGS: Stable advanced cerebral atrophy. 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 No intracranial mass or hemorrhage. The skull is intact. The sinuses are clear. IMPRESSION: No acute process. This exam was performed using automated exposure control, adjustment of mA or kV according to patient size, and/or use of iterative reconstruction technique Electronically signed by Jonathan Stephenson 06/26/2019 3:01 PM 06/26/19 1501 Interpreting Physician: Jonathan Stephenson MD Dictated Date/Time: 06/26/19 1451 cc: Ellie Fernandez; Jose Manuel Fernandez) - CONSULTS/PCP/HOSPITALIST Notification #1 *Consult/PCP/Hospitalist*: Rhiannon SAMUELS--> > Kylee Time Discussed: 16:05 Consult Disposition: Admit Departure - Departure Date of Disposition Decision: 06/26/19 Time of Disposition Decision: 16:05 DIAGNOSIS: CKD (chronic kidney disease), New onset a-fib, Generalized weakness, Frequent falls, Dizziness Disposition: ADMITTED INPATIENT 09 Certified Medical Emergency: Emergent Condition: Stable Referrals and Follow-Ups: Jose Manuel Fernandez [Primary Care Provider] - - Critical Care Note This patient required my direct & personal management of CC.: No Attestation - Physician/ ANNETTA Attestation Patient care was provided by Advanced Practice Provider:: Yes Advanced Practice Provider:: Ellie Fernandez Advanced Practice Provider documentation review:: The Mid-level provider documentation, treatment plan and medical decision making was reviewed by the physician who agrees with all treatment and medical decision making by the P. The physician spent face to face time with patient:: No Advanced Practice Provider documentation review:: Supervising physician onsite and consulted in the evaluation and care of this patient. The physician did not have a face to face encounter with the patient.
--- NOTE | 2019-06-26 15:03 | Diag Imaging Result Doc PS360 ---
CT HEAD W/O CONTRAST - 06/26/2019 INDICATION: dizziness, falls COMPARISON: 01/30/2017 FINDINGS: Stable advanced cerebral atrophy. 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 No intracranial mass or hemorrhage. The skull is intact. The sinuses are clear. IMPRESSION: No acute process. This exam was performed using automated exposure control, adjustment of mA or kV according to patient size, and/or use of iterative reconstruction technique Electronically signed by Jonathan Stephenson 06/26/2019 3:01 PM
[2019-06-26 15:18] LABS: URINE SOURCE CLEAN CATCH
[2019-06-26 15:21] LABS: BASO# 0.08 X1000 (0.0-0.2); BASO% 0.7 % (0.0-0.8); EOS% 0.9 % (0.0-10.0); HEMATOCRIT 48.7 % (42.0-52.0); HEMOGLOBIN 16.1 g/dL (14.0-18.0); IMM GRAN# 0.02 X1000 (0.0-0.04); IMM GRAN% 0.2 % (0.0-0.5); LYMPH# 1.48 X1000 (1.2-3.4); LYMPH% 13.7 % (20.5-51.1); MCH 29.5 PG (27-31); MCHC 33.1 g/dL (33-37); MCV 89.2 FL (81-99); MONO# 0.72 X1000 (0.11-0.59); MONO% 6.6 % (1.7-9.3); MPV 11.5 FL (7.4-10.4); NEUT# 8.43 X1000 (1.4-6.5); NEUT% 77.9 % (42.2-75.2); PLT 162 X1000 (130-400); RBC 5.46 XMIL (4.7-6.1); RDW 13.7 % (11.5-14.5); WBC 10.83 X1000 (4.8-10.8)
[2019-06-26 15:25] LABS: BILIRUBIN URINE NEGATIVE (NEGATIVE); BLOOD URINE NEGATIVE (NEGATIVE); COLOR YELLOW; GLUCOSE URINE NEGATIVE (NEGATIVE); KETONE URINE NEGATIVE (NEGATIVE); LEUKOCYTES URINE NEGATIVE (NEGATIVE); NITRITE URINE NEGATIVE (NEGATIVE); PROTEIN URINE NEGATIVE (NEGATIVE); SP GRAVITY URINE 1.014; TURBIDITY URINE CLEAR (CLEAR); UR EPITHELIAL CELLS <10 /HPF (<10); URINE BACTERIA 1+ /HPF; URINE RBC <10 /HPF (<10); URINE WBC <10 /HPF (<10); UROBILINOGEN URINE NORMAL (NORMAL)
[2019-06-26 15:37] LABS: INR 1.04; PROTIME 13.7 Seconds (11.0-16.0)
[2019-06-26 15:38] LABS: PTT 26.6 Seconds (22.3-41.8)
[2019-06-26 15:45] LABS: ALB/GLOB RATIO 1.5; CALCIUM 9.5 mg/dL (8.8-10.2); CREATININE 1.5 mg/dL (0.7-1.2); POTASSIUM 4.8 mmol/L (3.5-5.1); TOTAL BILIRUBIN 1.9 mg/dL (0.20-1.00); TOTAL PROTEIN 6.6 g/dL (6.3-8.3)
--- NOTE | 2019-06-26 15:58 | Diag Imaging Result Doc PS360 ---
CHEST-2 VIEWS - 06/26/2019 INDICATION: a-fib COMPARISON: 10/02/2018 FINDINGS: Stable surgical changes to the heart with aortic valve replacement. Stable moderate cardiomegaly. Pulmonary vascularity is grossly normal. No infiltrates or edema. No pneumothorax or pleural effusion. IMPRESSION: Cardiomegaly. Electronically signed by Jonathan Stephenson 06/26/2019 3:56 PM
--- NOTE | 2019-06-26 17:25 | EKG Report ---
Test Performed on : 06/26/2019 1:16:46 PM Test Reason : weakness Blood Pressure : / mmHG Vent. Rate : 068 BPM Atrial Rate : 079 BPM P-R Int : 000 ms QRS Dur : 152 ms QT Int : 486 ms P-R-T Axes : 000 -52 119 degrees QTc Int : 516 ms Atrial fibrillation. Right bundle branch block Left anterior fascicular block Bifascicular block Moderate voltage criteria for LVH, may be normal variant Cannot rule out Septal infarct , age undetermined Abnormal ECG When compared with ECG of 03-OCT-2018 06:11, Atrial fibrillation. has replaced Sinus rhythm. Nonspecific T wave abnormality no longer evident in Inferior leads T wave inversion no longer evident in Anterior leads Unconfirmed Result
--- NOTE | 2019-06-26 17:58 | HISTORY AND PHYSICAL ---
PRIMARY CARE PROVIDER: Romeo Sherwood. WHEEL AND AXLE INSPECTOR: Dr. Cabrera at [facility]. CHIEF COMPLAINT: Dizzy spells and falls. HISTORY OF PRESENT ILLNESS: Mr. Cooper is an 84-year-old male with a past medical history of non STEMI back in September, ischemic cardiomyopathy, aortic stenosis post TAVR, coronary artery disease status post CABG in 2009, hypertension, hyperlipidemia, acute kidney injury, BPH, congestive heart failure, colon cancer status post resection in 2016, chronic bilateral lower extremity edema, currently has a left swollen testicle that he was supposed to have a procedure done with Dr. Ortiz, but got cancel. He reports over the past week he has been having dizzy spells and falls. It will only last 1 to 2 seconds and then it is over and it usually happens every morning this week. He also reported a 1 year history with issues with his eyesight with blurry and double vision. He has gone to see his eye doctor about this, reported they could not find any issues. Workup in the ED revealed a new onset of rate controlled, actually bradycardic atrial fibrillation. All other laboratory data was essentially unremarkable. He denies any headache, cough, sore throat, chest pain, shortness of breath, fever, chills, recent travel, any sick contacts, abdominal pain. He does report that he has frequent diarrhea secondary to his resection that he takes medication for. He also has urinary incontinence secondary to being on a medication to help his flow. He will be admitted to PCP and monitored on telemetry with Cardiology consult in the a.m. Follow up with carotids and echo on Friday. PAST MEDICAL HISTORY: Per HPI. PAST SURGICAL HISTORY: CABG, TAVR, recent heart catheterization, colon resection, knee, and hip replacement. FAMILY HISTORY: Noncontributory. SOCIAL HISTORY: He lives with his . No alcohol, tobacco, or illicit drug use. [place] ALLERGIES: To statin. HOME MEDICATIONS: Are being compiled. REVIEW OF SYSTEMS: Completely negative except for those mentioned in HPI. PHYSICAL EXAMINATION: VITAL SIGNS: Temperature 98.3 degrees, heart rate 50, respirations 14, blood pressure 147/68, O2 is 97% on 2 L nasal cannula. GENERAL: Mr. Cooper is a pleasant 84-year-old gentleman who was lying on the stretcher sleeping in the dark in the ED, awakened easily in no acute distress. HEENT: Atraumatic, normocephalic. PERRL. NECK: Supple, trachea midline. CV: Bradycardic, somewhat irregular. No murmurs, gallops, or rubs noted. No JVD. Does have 3+ pitting edema bilateral lower extremities that is chronic for him. GI: Soft, nontender, nondistended. Positive bowel sounds 4 quadrants. EXTREMITIES: No signs of clubbing or cyanosis. NEUROLOGIC: No focal deficits noted. DIAGNOSTIC DATA: Chest x-ray cardiomegaly. Head CT, no acute process. EKG showed atrial fibrillation at 68 beats per minute with a right bundle branch block. ASSESSMENT AND PLAN: 1. Dizziness with frequent falls with a new onset of atrial fibrillation and bradycardia. The patient reports that he has been on a rate-controlling medicine secondary to having a high heart rate. We will hold any blood pressure medicine any rate control medicines at this time. We will check an echo and carotid Doppler on Friday. Consult Cardiology. 2. New onset atrial fibrillation. The patient reports no past history continue to monitor him on PCV with telemetry, follow cardiology's recommendations. 3. Chronic kidney disease, stable. 4. Generalized weakness and frequent falls secondary to dizziness. Place him on fall precautions. 5. Congestive heart failure. He does have bilateral lower extremity edema that is chronic for him. They are not any more swollen than their usual. 6. Hypertension stable. 7. Aortic stenosis status post transcatheter aortic valve replacement. 8. Ischemic cardiomyopathy. 9. Benign prostatic hypertrophy,left swollen testicle. He was supposed to have a procedure done with Dr. Ortiz, however, it did get canceled. 10. Colon cancer status post resection in 2016. 11. Further recommendation to follow physician evaluation, laboratory and diagnostic data. Dictated by ARVIND Rea for Britney García MD cc: MD Jose Manuel Bhatti MD Johnson, Peter, MD MTDD
[2019-06-26] MEDS ORDERED: TYLENOL PO PRN (18:33)
[2019-06-26] MEDS ORDERED: ZOFRAN IV PRN (18:33)
[2019-06-26] MEDS: NS 1,000 ML IV SCH (19:55)
[2019-06-27 05:50] LABS: ALLEN TEST YES; BE 3.3 mmoll (-3.0-3.0); BLOOD TYPE ARTERIAL; HCO3-(ACT) 27.5 mmoll (20.0-26.0); METHB 0.8 % (0.0-1.5); O2(CT) 18.9 mL/dL (15.0-23.0); O2HB 96.5 % (95.0-99.0); PCO2(98.6) 48 mmHg (35-45); PO2(98.6) 152 mmHg (60-100); SAMPLE BLOOD; SAO2 98.1 % (95.0-100.0); THB 13.7 g/dL (11.5-17.4); pH(98.6) 7.39 (7.35-7.45)
[2019-06-27 05:51] LABS: MODALITY CANNULA
[2019-06-27 07:06] LABS: AGAP 9; ALB/GLOB RATIO 1.6; ALBUMIN 3.3 g/dL (3.5-5.0); ALKALINE PHOSPHATASE 55 U/L (32-122); BUN 21 mg/dL (8-22); CALCIUM 8.9 mg/dL (8.8-10.2); CHLORIDE 100 mmol/L (98-107); COSMO 276; CREATININE 1.1 mg/dL (0.7-1.2); ESTIMATED GFR > 60; GLUCOSE 109 mg/dL (70-104); GOT 18 U/L (10-34); GPT 15 U/L (10-44); MAGNESIUM 1.8 mg/dL (1.5-2.7); POTASSIUM 4.2 mmol/L (3.5-5.1); SODIUM 136 mmol/L (136-145); TCO2 27 mmol/L (25-35); TOTAL PROTEIN 5.3 g/dL (6.3-8.3)
[2019-06-27] MEDS: NS 1,000 ML IV SCH (07:35)
--- NOTE | 2019-06-27 10:05 | EKG Report ---
Test Performed on : 06/27/2019 06:10:27 AM Test Reason : afib, jasen Blood Pressure : / mmHG Vent. Rate : 058 BPM Atrial Rate : 058 BPM P-R Int : 000 ms QRS Dur : 158 ms QT Int : 502 ms P-R-T Axes : 000 -53 092 degrees QTc Int : 492 ms Atrial fibrillation. with slow ventricular response. with a competing junctional pacemaker. Left axis deviation Right bundle branch block Minimal voltage criteria for LVH, may be normal variant Abnormal ECG No previous ECGs available Confirmed by Candido NAGEL, Jonh Foster ([id number]) on 06/29/2019 9:40:04 AM
[2019-06-27] MEDS: ZYLOPRIM PO SCH ×2 (10:11→20:45)
[2019-06-27] MEDS: ASPIRIN PO SCH (10:11)
[2019-06-27] MEDS: FLOMAX PO SCH (10:11)
[2019-06-27] MEDS: VITAMIN D PO SCH (10:11)
--- NOTE | 2019-06-27 13:27 | CARDIOLOGY CONSULTATION ---
DATE: 06/27/2019 CHIEF COMPLAINT: Lightheaded spells, dizziness. HISTORY OF PRESENT ILLNESS: Mr. Cooper is an 84-year-old white male with a history of ischemic cardiomyopathy, non ST-elevation myocardial infarction, TAVR, coronary bypass grafting. He presented for the above complaints that have been ongoing for the last, what sounds like, several weeks. He had some sort of escalation of medications per his primary senior relationship manager several months ago. This was done at [facility]. He is not clear what medication this was. He will get lightheaded. It occurs when he is seated or when he is standing. He had 3 episodes that he thinks of that occurred this morning. He has not had any overt syncope, but he gets very lightheaded and has had falls secondary to this. He denies any orthopnea. Denies any exertional chest pain. PAST MEDICAL HISTORY: 1. coronary disease with coronary bypass grafting done in 2009. This was a redo. The last cardiac catheterization was in 2015 and showed a severe lesion in the proximal LAD. REECE to the LAD was patent. The distal segment had severe diffuse disease. Diagonal branch was large and had mild diffuse disease. Circumflex was large and nondominant 30% to 40% proximal stenosis. Right coronary was occluded. Vein graft to the OM 2 was widely patent. REECE to the LAD, widely patent. 2. History of aortic stenosis with TAVR in 2016. This was done again at [facility]. He originally had a balloon valvuloplasty done prior to colonic surgery. 3. Colon cancer status post resection in 2016. 4. Hypertension. 5. Hyperlipidemia. 6. CKD. 7. Ischemic cardiomyopathy. The last echocardiogram I have on file for him was in September of 2018 that showed an EF of 35% with inferolateral wall motion abnormalities and a dilated left ventricle at 5.9 cm. SOCIAL HISTORY: . Does not smoke. FAMILY HISTORY: Hypertension. REVIEW OF SYSTEMS: A 10-system review of systems is negative. PHYSICAL EXAMINATION: Vital signs: Afebrile. Heart rate 58, blood pressure 137/60. General: He is in no acute distress. HEENT: Oropharynx is moist. Poor dentition. Eye examination is pink conjunctivae and white sclerae. Neck: Examination shows no obvious thyromegaly or thyroid tenderness. Cardiovascular: He sounds to be in a regular rate and rhythm. He has no obvious murmurs. He has no S3. He has no lower extremity edema. Chest: Exam sounds clear. He has no increased work of breathing. Abdomen: Soft, nontender, nondistended. He has no obvious organomegaly. Skin: Warm and dry throughout without any rashes. Neurological: He is moving all extremities well. He has no lateralizing deficits. PERTINENT DATA: Head CT showed no evidence of any acute findings. Chest x-ray shows cardiomegaly no infiltrates no edema. His original EKG occurring on the at 1316 shows what appears to be a possible atrial fibrillation. Nonspecific intraventricular conduction delay. Subsequent EKG occurring on the at 0610 and seems to show sinus mechanism. His telemetry tracings, specifically the one occurring on the morning of the at 0742, had what appeared to be a roughly 7-1/2 second pause. White count is 10.8, hematocrit 48 platelet count 162,000. His INR is 1.0, sodium 136, potassium 4.2, BUN 21, creatinine is 1.1. TSH 2.17, albumin 3.3. ASSESSMENT: Mr. Cooper is an 84-year-old gentleman with a lightheaded and dizzy spells. PLAN: He has a history of ischemic cardiomyopathy and has had significant AV block occurring resulting in a 7-1/2 second pause this morning. This is likely the etiology of his symptoms. We will plan on trying to get him transferred over to [facility] for implantation of a pacemaker. We will check an echocardiogram in the morning. He had a reduced EF of 30% to 35% on last echocardiogram in September of 2018, so he may be a candidate for a biventricular device. cc: Nadeem Olivas MD
--- NOTE | 2019-06-27 16:38 | PROGRESS NOTE ---
DATE: 06/27/2019 SUBJECTIVE: The patient is resting comfortably in bed. He has no complaints at this time. OBJECTIVE: Vital Signs: Temperature 98.4 degrees, blood pressure 130/63, heart rate 55, respirations 14, O2 saturation 98% on 2 L nasal cannula. General: This is an elderly male lying in bed in no acute distress. Heart: S1, S2 normal. Regular rate and rhythm. Lungs: Equal air entry bilaterally. Abdomen: Positive bowel sounds. Soft, nontender, nondistended. Extremities: No edema. No cyanosis. Neurologic: The patient is alert and oriented x3. LABS: Sodium 136, potassium 4.2, chloride 100, CO2 27, BUN 21, creatinine 1.1, glucose 109, magnesium 1.8, total bilirubin 2.3, AST 18, ALT 15, alkaline phosphatase 55, total protein 5.3, albumin 3.3. ASSESSMENT AND PLAN: 1. Near syncope in the setting of AV block with pause. The patient has been assessed by the hand dry cleaner and plans to transfer the patient to [facility] tomorrow. Continue to monitor closely on PVC. 2. Hypertension. Continue on the current antihypertensive regimen. 3. Ischemic cardiomyopathy. Aware. 4. History of aortic stenosis with a transcatheter aortic valve replacement. Aware. 5. Coronary artery disease status post coronary artery bypass graft. Continue on the current cardiac medications. 6. Deep vein thrombosis prophylaxis. Continue with sequential compression devices. cc: Britney García MD MTDD
[2019-06-27] MEDS: PRINIVIL PO SCH (20:45)
[2019-06-28 05:55] LABS: BASO# 0.03 X1000 (0.0-0.2); BASO% 0.4 % (0.0-0.8); EOS# 0.35 X1000 (0.0-0.7); EOS% 4.8 % (0.0-10.0); HEMATOCRIT 40.7 % (42.0-52.0); HEMOGLOBIN 13.4 g/dL (14.0-18.0); IMM GRAN# 0.02 X1000 (0.0-0.04); IMM GRAN% 0.3 % (0.0-0.5); LYMPH% 22.1 % (20.5-51.1); MCH 29.6 PG (27-31); MCHC 32.9 g/dL (33-37); MCV 89.8 FL (81-99); MONO# 0.64 X1000 (0.11-0.59); MONO% 8.9 % (1.7-9.3); MPV 11.7 FL (7.4-10.4); NEUT# 4.59 X1000 (1.4-6.5); NEUT% 63.5 % (42.2-75.2); PLT 134 X1000 (130-400); RBC 4.53 XMIL (4.7-6.1); RDW 13.4 % (11.5-14.5); WBC 7.23 X1000 (4.8-10.8)
[2019-06-28 05:59] LABS: INR 1.14; PROTIME 14.7 Seconds (11.0-16.0)
[2019-06-28 06:08] LABS: AGAP 8; BUN 16 mg/dL (8-22); CALCIUM 8.5 mg/dL (8.8-10.2); CHLORIDE 104 mmol/L (98-107); COSMO 277; ESTIMATED GFR > 60; GLUCOSE 109 mg/dL (70-104); MAGNESIUM 1.8 mg/dL (1.5-2.7); POTASSIUM 4.2 mmol/L (3.5-5.1); SODIUM 138 mmol/L (136-145); TCO2 26 mmol/L (25-35)
[2019-06-28] MEDS ORDERED: ZETIA PO SCH (09:00)
[2019-06-28] MEDS ORDERED: LIVALO PO SCH (09:00)
[2019-06-28] MEDS ORDERED: PLAVIX PO SCH (09:00)
[2019-06-28] MEDS: FLOMAX PO SCH (09:33)
[2019-06-28] MEDS: VITAMIN D PO SCH (09:33)
[2019-06-28] MEDS: ZYLOPRIM PO SCH (09:33)
[2019-06-28] MEDS: ASPIRIN PO SCH (09:34)
[2019-06-28] MEDS: PRINIVIL PO SCH (09:34)
[2019-06-28] MEDS ORDERED: LOMOTIL PO SCH (09:45)
[2019-06-28] MEDS ORDERED: MAGNESIUM SULFATE 2 GM/S.W.I. 2 GM/50 ML IVPB IV ONE (12:33)
--- NOTE | 2019-06-28 12:49 | CARDIOLOGY PROGRESS NOTE ---
DATE: 06/28/2019 SUBJECTIVE: Mr. Cooper has no complaints of pain today. He did have a very minimal lightheaded episode this morning. Telemetry strip on the chart shows a 5 second pause occurring at 7:32 yesterday morning. He had an 11 beat run of nonsustained ventricular tachycardia at 5:26 this morning. I have no other telemetry data on the chart. PHYSICAL EXAMINATION: Afebrile, heart rate 65, blood pressure 140/52. General: No acute distress. Cardiovascular: He sounds to be in a regular rate and rhythm. He has no murmurs. He has no S3. He has no lower extremity edema. Chest Examination: Clear bilaterally. He has no increased work of breathing. Abdomen: Soft, nontender, nondistended. He has no obvious organomegaly. PERTINENT DATA: His magnesium level is 1.8. His telemetry strips are as detailed above. His white count is 7.2, hematocrit 40, platelet count is 134,000. Sodium 138, potassium is 4.2, BUN 16, creatinine is 1. ASSESSMENT: Mr. Cooper is an 84-year-old gentleman who came in with near syncopal spells. PLAN: He has had significant pauses on his telemetry, upwards of around 7 seconds. He had an 11 beat run of nonsustained ventricular tachycardia. At this point, I will continue discussions with electrophysiology. I had a discussion with them this morning and they were considering reduction in his Coreg, pursuing an outpatient heart monitor, and then likely ICD/pacemaker implantation down the road. We will rediscuss this plan with them this afternoon. ADDENDUM: Plan will be to discharge the patient on low dose coreg, 3.125mg BID. JENN is in hand and he has been instructed on use. He will have contact via Dr. Garcia office regarding plan for device implant on 06/30/19. EKG is suggestive of trifasicular block. EF 35% and has been on goal directed med therapy for longer than 3months. Last pause of 7.5sec was AM of 06/27/19. Since then pauses have been 2.5-3 sec in length with minimal to no symptomatology. 11 beat run of NSVT noted this AM at 0526 that was asymptomatic. Indications for beta monika noted (EF 35%, CAD/[place]). Patient has been thoroughly instructed on the plan and will contact me in the office if he has not been instructed on device implant by noon tomorrow. cc: Nadeem Olivas MD MTDD
--- NOTE | 2019-06-28 12:55 | ECHO REPORT ---
ORDER DATE: 06/28/2019 INDICATIONS: 1. Status post transcatheter aortic valve replacement for aortic stenosis. 2. Coronary artery disease. 3. Two-dimensional echocardiogram. INTERPRETING PHYSICIAN: Dr. Gerson Hayden ECHOCARDIOGRAPHIC MEASUREMENTS: 1. Interventricular septum: 1.2 cm. 2. Posterior wall: 1.2 cm. 3. Diastolic diameter: 5.8 cm. 4. Left atrium: 5.5 cm. 5. Aortic root: 2.5 cm. SUMMARY OF THE 2-DIMENSIONAL IMAGIN. Bioprosthetic valve in the aortic position was stable. 2. Mitral valve was normal. There is moderate mitral annular calcification. 3. Tricuspid valve was normal. 4. There is biatrial enlargement. 5. There is moderate tricuspid regurgitation. Peak velocity across the tricuspid valve was 2.9 m/sec. 6. Pulmonary artery systolic pressure of 48 mmHg. 7. There is moderate mitral regurgitation. 8. There is grade 2 diastolic dysfunction. 9. Peak velocity across the aortic valve was 2.1 m/sec. 10. Aortic valve area by VTI was 1.2 cm2. In keeping with bioprosthetic valve, there is no aortic stenosis or regurgitation. 11. Left ventricular cavity size upper limit of normal. Estimated ejection fraction of 35 to 40 percent. There is inferior apical hypokinesis. 12. There is no pericardial effusion or obvious intracardiac mass or thrombus. cc: MD Nadeem Ferrell MD
[2019-06-28] MEDS ORDERED: LOVENOX SUBQ SCH (13:30)
--- NOTE | 2019-06-28 13:39 | PROGRESS NOTE ---
DATE: 06/28/2019 SUBJECTIVE: The patient is resting comfortably in bed. He complains of occasional dizziness. He also reports that he has chronic diarrhea. OBJECTIVE: Vital Signs: Temperature 97.9 degrees, blood pressure 140/52, heart rate 65, respirations 15, O2 saturation is 99% on room air. General: This is an elderly male, lying in bed, in no acute distress. Heart: S1, S2 normal. Regular rate and rhythm. Lungs: Equal air entry bilaterally. Abdomen: Positive bowel sounds. Soft, nontender, nondistended. Extremities: There is 1+ edema bilaterally. Neurologic: The patient is alert and oriented x3. Labs: White blood cell count 7.2, hemoglobin 13, hematocrit 40, platelets 134,000. Sodium 138, potassium 4.2, chloride 104, CO2 of 26, BUN 16, creatinine 1, glucose 109, magnesium 1.8, calcium 8.5. ASSESSMENT AND PLAN: 1. Near syncope in the setting of atrioventricular block with pauses. Cardiology is working on possibly getting the patient transferred to [facility] for a possible pacemaker to be placed. We will continue to monitor closely on PVC. 2. Ischemic cardiomyopathy. Aware. 3. History of aortic stenosis with a transcatheter aortic valve replacement. Aware. 4. Hypertension. Stable. 5. Coronary artery disease, status post coronary artery bypass graft. Continue on the current cardiac medications. 6. Chronic diarrhea, status post colon resection. Continue on Lomotil. 7. Deep vein thrombosis prophylaxis. Continue with sequential compression devices. cc: Britney García MD
[2019-06-28 15:41] VITALS: BP 131/86
--- NOTE | 2019-06-28 17:16 | Carotid Study ---
DATE: 06/28/2019 PARTS CLERK PLANT MAINTENANCE: Jose. REQUESTING PHYSICIAN: No requesting physician documented. INDICATIONS: Dizziness. FINDINGS: The bilateral carotid artery systems were visualized. In the right, there is broad- based atherosclerotic plaque changes from the bulb extending to the proximal internal carotid arteries with velocities being in the 0 to 39% range. On the left there is a visualized metallic stent that is patent with normal velocities consistent with a patent left carotid stent. Vertebrals are antegrade bilaterally. IMPRESSION: Mild degree of atherosclerotic-related stenosis on the right with patent internal carotid artery seen on the left. cc: Janie Upton MD
--- NOTE | 2019-06-29 06:59 | DISCHARGE SUMMARY ---
ADMISSION DATE: 06/26/2019 DISCHARGE DATE: 06/28/2019 FINAL DISCHARGE DIAGNOSES: 1. Near syncope. 2. Nonsustained ventricular tachycardia. 3. AV block with long pauses. 4. Chronic diarrhea. 5. Ischemic cardiomyopathy. 6. History of aortic stenosis with transcatheter aortic valve replacement. 7. Hypertension. 8. Coronary artery disease status post coronary artery bypass graft. 9. Mild right carotid artery stenosis. CONSULTATIONS: Cardiology consultation with Dr. Olivas. HOSPITAL COURSE: Mr. oCoper is an 84-year-old male, with an extensive cardiac history, who presented to the ER with a chief complaint of dizzy spells and near syncope. The patient was admitted to the hospitalist service and Cardiology was consulted. After the disc pad grinding machine feeder reviewed the patient's telemetry data, it was noted that the patient had significant AV block with pauses that were detected. The patient also had an echocardiogram done that revealed an ejection fraction of 35 to 40 percent that was consistent with prior echos. Prior to admission, the patient was on Coreg [address] Olivas discussed the case with the [employer] operations specialist in [place], and they both decided that the patient should decrease the Coreg dosage to 3.125 mg twice a day. A heart monitor was also provided to the patient to take home with him and the patient was advised to contact Dr. Garcia' office for device implantation for 06/30/2019. The patient was given the phone number for both Dr. Garcia and Dr. Olivas. DISCHARGE MEDICATIONS: 1. Coreg 3.125 mg oral every 12 hours. 2. Flomax 0.4 mg oral daily. 3. Lasix 20 mg oral daily. 4. Zetia 10 mg oral daily. 5. Allopurinol 100 mg oral twice a day. 6. Lisinopril 10 mg oral twice a day. 7. Lomotil 2.5 mg oral every 4 hours p.r.n. for diarrhea. 8. Vitamin D3 5,000 units oral daily. 9. Pitavastatin 4 mg oral daily. DISCHARGE DIET: Low-sodium diet. ACTIVITY: As tolerated. FOLLOWUP INSTRUCTIONS: The patient is scheduled to receive a call from Dr. Garcia office on 06/29/2019 to coordinate this device implantation. The patient was also advised to hold his aspirin and Plavix until further notice from his disc pad grinding machine feeder after the device has been implanted. cc: Britney García MD MTDD
== END 2019-06-28 16:18 | disposition home or self-care (01) | DRG 309 ==
LOC: SUPCPDRO → ED 13:00 → 2N 17:24
PROVIDERS: ATTEND Internal Medicine